=== PATIENT | female | born 1995 | race African-American/Black ===

== ENCOUNTER 2020-05-05 14:28 | Emergency (ER) | payer OTHER, SELFPAY ==
--- NOTE | ~2020-05-05 | CT_ITS ---
EXAMINATION: CT abdomen pelvis w con EXAM DATE: 05/05/2020 18:35 INDICATION: Lower abdominal pain . TECHNIQUE: Spiral CT of the abdomen and pelvis was performed following intravenous injection of 100 m L Omnipaque 350. Axial, coronal and sagittal images were reviewed. The dose-length product (DLP) fo r this examination was 403.85 mGy-cm. The exposure was tailored according to patient size (auto mA e xposure control), and iterative reconstruction (ASIR) was used as additional dose reduction technique . There is no prior study for comparison. FINDINGS: The liver, spleen, adrenal glands and pancreas are unremarkable. Gallbladder is unremarkab le. No biliary obstruction. Portal and splenic veins are patent. Kidneys enhance symmetrically. T here is no hydronephrosis. The uterus and ovaries are unremarkable, no adnexal mass. The bladder i s unremarkable. There is no retroperitoneal or pelvic lymphadenopathy. The appendix is normal. The stomach and small bowel are unremarkable. There is expected amount of c olonic stool. No free intraperitoneal gas. The heart is normal in size. There are no pericardial or pleural effusions. The lung bases are unremarkable. There are no osseous abnormalities identifie d. IMPRESSION: No acute intra-abdominal findings. Reviewed, dictated and finalized at location A.
[2020-05-05 14:32] VITALS: BP 110/77; PULSE 86; RESP 18; TEMP 37.1; O2SAT 100
--- NOTE | 2020-05-05 15:02 | ED.ABDPAIN ---
HPI - Abdominal Pain General Chief Complaint: Abdominal Pain Stated Complaint: Lap Time Seen by Provider: 05/05/20 14:32 Source: patient Mode of arrival: ambulatory Limitations: no limitations History of Present Illness HPI narrative: 24 years old -[place] female presents with recurrent lower abdominal cramps and heavy menstrual cycle for the last 4 years, got worse over the last 2 months. When the pain is so severe that she get nauseated and vomits. Patient denies any fever, chills, chest pain, back pain, never been before, denies any vaginal discharge. Patient reports that she is starting having her menstrual cycle yesterday associated with the above symptoms. Not getting better on ibuprofen 800 mg. Patient does not have an AGRICULTURE TEACHER. I suspect she Patient denies any history of abdominal surgery. Related Data Allergies Allergy/AdvReac Type Severity Reaction Status Date / Time No Known Allergies Allergy Verified 05/05/20 15:16 Review of Systems Review of Systems: Narrative: CONSTITUTIONAL: Denies fever, chills, or sweats. EYES: Denies visual changes, redness, or discharge. ENT: Denies rhinorrhea, congestion, sore throat, or otalgia. CARDIOVASCULAR: Denies chest pain, palpitations, or edema. RESPIRATORY: Denies cough or dyspnea. GASTROINTESTINAL: Denies abdominal pain, nausea, vomiting, or diarrhea. GENITOURINARY: Denies dysuria or hematuria. SKIN: Denies rash or itching. MUSCULOSKELETAL: Denies back pain, joint pain, or myalgia. NEUROLOGIC: Denies headache, numbness, or weakness. PSYCHIATRIC: Denies anxiety or depression. PMFSH Past Medical History Medical History (Updated 05/05/20 @ 19:14 by Freddie Mosqueda MD) Menorrhagia Traumatic subungual hemorrhage of digit of hand Social History Social History (Updated 05/05/20 @ 15:06 by Freddie Mosqueda MD) Social History: Patient is a smoker, drinks occasionally, and uses marijuana Second hand tobacco smoke exposure: No Exam Narrative: Exam Narrative: General appearance: Well-developed, well-nourished Skin: Normal color Head: Normocephalic, nontraumatic Eyes: Clear conjunctiva ENT: Oropharynx normal, ears normal, nose normal Neck: Supple, nontender Chest and respiratory: Airway patent, no respiratory distress, no accessory muscle use Heart: Regular rate/rhythm Abdomen: Soft, nontender, no organomegaly, quiet bowel sounds Vascular: Normal peripheral pulses, normal capillary refill. Musculoskeletal: Normal range of motion, nontender back Neurologic: Alert and oriented ?3, CATCHER HELPER is normal as tested, no gross motor deficit Course Course Emergency Course: Stable Vital Signs Vital signs: Vital Signs Temperature 37.1 C 05/05/20 14:32 Pulse Rate 86 05/05/20 14:32 Respiratory Rate 18 05/05/20 14:32 Blood Pressure 110/77 05/05/20 14:32 Pulse Oximetry 100 05/05/20 14:32 Temperature 37.1 C 05/05/20 14:32 Pulse Rate 72 05/05/20 16:51 Respiratory Rate 18 05/05/20 16:48 Blood Pressure 96/73 L 05/05/20 16:51 Pulse Oximetry 100 05/05/20 16:48 MDM - Abdominal Pain MDM Narrative Medical decision making narrative: Patient presents with lower abdominal pain associated with menstruation which started yesterday. Patient had similar symptoms for the last 4 years, does not have an AGRICULTURE TEACHER. Physical exam showed mild lower abdominal tenderness without guarding or rebound, Blood work-up includes CBC, CMP showed no significant abnormality. Urinalysis showed hematuria consistent with menstrual cycle, CAT scan of the abdomen and pelvis with IV contrast to rule out possibility of appendicitis, showed no significant abnormality. My diagnosis is dysmenorrhea, and
[2020-05-05 15:13] LABS: Basophils Absolute Auto 0.1 K/mm3 (0.0-0.1); Basophils Percent Auto 0.5 % (0.2-1.2); Eosinophils Absolute Auto 0.1 K/mm3 (0-0.3); Eosinophils Percent Auto 0.5 % (0-4.4); Hematocrit 41.2 % (37.0-47.0); Hemoglobin 12.9 g/dL (12.0-15.0); Immature Granulocyte Absolute 0.04 K/mm3 (0.00-0.031); Immature Granulocyte Percent A 0.4 % (0-0.5); Lymphocytes Absolute Auto 1.53 K/mm3 (0.9-3.2); Lymphocytes Percent Auto 14.2 % (18.3-44.2); Mean Corpuscular HGB Conc 31.3 g/dl (32-36); Mean Corpuscular Hemoglobin 22.4 pg (26-34); Mean Corpuscular Volume 71.4 fl (80-100); Mean Platelet Volume 10.5 fl (7.4-10.4); Monocytes Absolute Auto 0.6 K/mm3 (0.1-0.6); Neutrophils Absolute Auto 8.4 K/mm3 (1.3-6.7); Neutrophils Percent Auto 78.4 % (45.5-73.1); Platelet Count Result 205 k/mm3 (150-375); Red Blood Count 5.77 M/mm3 (4.2-5.4); Red Cell Distribution Width 15.4 % (11.5-14.5); White Blood Count 10.8 K/mm3 (4.5-10.0)
[2020-05-05 15:22] LABS: Alanine Aminotransferase 19 U/L (4-35); Albumin Level 4.4 g/dL (3.5-5.1); Alkaline Phosphatase 55 U/L (38-126); Anion Gap 8 mmol/L (8-16); Aspartate Amino Transferase 27 U/L (14-36); Bilirubin,Total 0.4 mg/dL (0.2-1.3); Blood Urea Nitrogen 9 mg/dL (7-17); Calcium 9.3 mg/dL (8.4-10.2); Carbon Dioxide 28 mmol/L (22-30); Chloride 104 mmol/L (98-107); Estimated CRCL calculation 93 ml/min; Estimated Glomerular Filt Rate > 60; Glucose 110 mg/dL (65-105); Lipase 58 U/L (23-300); Potassium 3.9 mmol/L (3.4-5.0); Sodium 140 mmol/L (137-145)
[2020-05-05] MEDS: KETOROLAC 30 MG/ML VIAL (*BKC) IV PUSH (15:30)
[2020-05-05] MEDS: SODIUM CHLORIDE 0.9% IV 1,000 ML 999 ML IV CONT (15:30)
[2020-05-05 15:52] LABS: Add Urine Microscopic? YES; Appearance Urine Cloudy (Clear); Bacteria Urine Trace /hpf; Bilirubin Urine Negative (Negative); Blood Urine 3+ (Negative); Color Urine Red (Yellow); Glucose Urine UA Negative (Negative); Ketones Urine Negative (Negative); Leukocyte Esterase Ur Trace LEU/UL (Negative); Mucus Urine Heavy /lpf; Nitrate Urine Negative (Negative); Protein Urine 2+ mg/dL (Negative); RBC Urine >75 /hpf (0-2); Specific Grav Ur 1.029 (1.001-1.035); WBC Urine 21-30 /hpf
[2020-05-05 16:48] VITALS: BP 107/66; PULSE 71; RESP 18; O2SAT 100
[2020-05-05 16:50] VITALS: BP 106/76; PULSE 76
[2020-05-05 16:51] VITALS: BP 96/73; PULSE 72
== END 2020-05-05 19:24 | disposition home or self-care (01) ==
PROVIDERS: Emergency Provider Emergency Medicine
DX: N92.1 Excessive and frequent menstruation with irregular cycle (principal); F17.210 Nicotine dependence, cigarettes, uncomplicated
CPT/HCPCS: 36415; 74177; 80053; 81001; 81025; 83690; 85025; 87086; 87088; 96361; 96374; 99284; J1885; J7030; Q9967

== ENCOUNTER 2021-05-16 18:04 | Emergency (ER) | payer SELFPAY ==
[2021-05-16 18:58] VITALS: BP 93/62; PULSE 72; RESP 14; TEMP 36.3; O2SAT 100
--- NOTE | 2021-05-16 19:35 | PC.NURSE ---
patient to ER with c/o jaw pain. swelling noted to right jaw/neck. pt also states pain on left side. patient states she believes she has some bad teeth.
--- NOTE | 2021-05-16 19:50 | ED.DENTAL ---
HPI - Dental/Oral General Chief complaint: Dental/Oral Stated complaint: Facial Pain Time Seen by Provider: 05/16/21 19:32 Source: patient and RN notes reviewed Mode of arrival: ambulatory Limitations: no limitations History of Present Illness HPI Narrative: This is 25 year old female who presents for evaluation of right lower dental pain. She reports having right lower tooth that has been bothering her for a while. Starting yesterday, she started having worsening right lower tooth pain that is constant. Pain is worse with eating and palpation. She denies fever, chills, nausea or vomiting. She has been taking naproxen, ibuprofen and Tylenol for her pain. Related Data Allergies Allergy/AdvReac Type Severity Reaction Status Date / Time No Known Allergies Allergy Verified 05/05/20 15:16 Review of Systems Review of Systems: All systems reviewed & are unremarkable except as noted in HPI and below PMFSH Past Medical History Medical History Menorrhagia Traumatic subungual hemorrhage of digit of hand Social History Social History (Updated 05/05/20 @ 15:06 by Freddie Mosqueda MD) Social History: Patient is a smoker, drinks occasionally, and uses marijuana Second hand tobacco smoke exposure: No Exam Const: General: no acute distress and alert Orientation/consciousness: patient oriented x3 HENMT: Head: normocephalic and atraumatic Mouth: Yes lip normal, Yes tongue normal and Yes moist mucous membranes Teeth and gingiva: fair dentition and other (right tooth #29 TTP, no gum swelling but there is tenderness) Eyes: EOM: EOMs intact bilaterally Neck: Neck: normal visual inspection Resp: Effort & Inspection: normal respiratory effort and no retractions Auscultation: clear to auscultation bilaterally Cardio: Rate: regular rate Rhythm: regular rhythm Heart sounds: no murmurs Course Reevaluation(s) Reevaluation #1: I discussed with patient discharge plan and treatment. She will follow up with dentist and take antibiotics. Date: 05/16/21 Time: 19:53 Vital Signs Vital signs: Vital Signs Temperature 97.4 F L 05/16/21 18:58 Pulse Rate 72 05/16/21 18:58 Respiratory Rate 14 05/16/21 18:58 Blood Pressure 93/62 L 05/16/21 18:58 Pulse Oximetry 100 11/01/21 18:58 Temperature 97.4 F L 05/16/21 18:58 Pulse Rate 72 05/16/21 18:58 Respiratory Rate 14 05/16/21 18:58 Blood Pressure 93/62 L 05/16/21 18:58 Pulse Oximetry 100 05/16/21 18:58 Discharge Plan Discharge Clinical Impression: Dental caries, Toothache Patient Disposition: Home, Self-Care Condition: Stable Instructions: Antibiotic Form, Toothache (ED) Additional Instructions: Please follow up with dentis for treatment of your tooth. TAke antibiotics as prescribed. Prescriptions: New amoxicillin-pot clavulanate [Augmentin] 875-125 mg tablet 1 tablet PO Q12H Qty: 20 RF: 0 tramadol 50 mg tablet 50 mg PO Q6H PRN (Reason: pain) Qty: 7 RF: 0 No Action tramadol 50 mg tablet 50 mg PO Q4H PRN (Reason: pain) Qty: 14 RF: 0 Follow-up/Referrals: Doug Hayward MD [Physician] - PHYSICIAN,RIDE ATTENDANT [Primary Care Provider] - Stand Alone Forms: Work/School Release IP
[2021-05-16] MEDS: AMOXICILLIN/CLAVULANATE K 875-125 MG TAB 1 TABLET PO (19:51)
== END 2021-05-16 20:13 | disposition home or self-care (01) ==
LOC: ANHED 19:55
PROVIDERS: Emergency Provider General Practice
DX: K02.9 Dental caries, unspecified (principal); F17.200 Nicotine dependence, unspecified, uncomplicated
CPT/HCPCS: 99283; A9270

== ENCOUNTER 2024-07-14 13:35 | Emergency (ER) | payer SELFPAY ==
--- NOTE | ~2024-07-14 | US_ITS ---
EXAMINATION: US pelvic complete w TV DATE: 07/14/2024 15:25 INDICATION: Right lower quadrant abdominal pain. TECHNIQUE: Multiple transabdominal and transvaginal sonographic images of the pelvis were obtained. COMPARISON: CT abdomen and pelvis 05/05/2020 FINDINGS: TRANSABDOMINAL ULTRASOUND: The uterus measures 7.7 x 4.1 x 5.3 cm. There is no free fluid in the pelvis. TRANSVAGINAL ULTRASOUND: The endometrial complex measures 2 mm in thickness. The right ovary measures 2.9 x 2.2 x 2.9 cm. The left ovary measures 3.4 x 3.1 x 2.6 cm. There is normal vascular flow in the ovaries. IMPRESSION: 1. Normal pelvis. Reviewed, dictated and finalized at location A. MAN IMPRESSION: 1. Normal pelvis.
[2024-07-14 14:23] VITALS: BP 108/76; PULSE 97; RESP 16; TEMP 36.4; O2SAT 100
--- NOTE | 2024-07-14 14:38 | ED.NAVMDI ---
HPI - Nausea/Vomiting/Diarrhea General Chief complaint: Nausea/Vomiting/Diarrhea <LYNN Warner Last Filed: 07/14/24 19:03> Stated complaint: vomited blood <LYNN Warner Last Filed: 07/14/24 19:03> Time Seen by Provider: 07/14/24 14:38 <LYNN Warner Last Filed: 07/14/24 19:03> Focused HPI: Patient is a 28-year-old female who presents the ED with report of abdominal pain and hematemesis. Patient reports she started her normal menstrual cycle last night. She states it is not uncommon for her to have nausea and vomiting related to the pain with her cycles. She has had several episodes of emesis today. States after she vomited up all her food, she began noticing blood in her emesis. Then had another episode of emesis which consisted of just blood, approx 2 teaspoons. She then prompted here. She does c/o pain in her right lower abdomen. Denies urinary complaints. Denies fevers. GENERAL: Well-appearing, well-nourished, and in no acute distress. HEAD: Normocephalic, atraumatic. CHEST: Clear to auscultation. ?No respiratory distress. HEART: Regular rate and rhythm.? ABD: Mild TTP in RLQ, no rebound NEURO: ?Alert and oriented x3. Patient screened in triage and initial orders placed.? ?Additional care and disposition to be based upon?diagnostic testing and treatment. <LYNN Warner Last Filed: 07/14/24 19:03> Source: patient <LYNN Warner Last Filed: 07/14/24 19:03> Mode of arrival: ambulatory <LYNN Warner Last Filed: 07/14/24 19:03> Limitations: no limitations <LYNN Warner Last Filed: 07/14/24 19:03> Related Data Allergies/Adverse reactions: Allergies Allergy/AdvReac Type Severity Reaction Status Date / Time No Known Allergies Allergy Verified 05/05/20 15:16 <Manasa Ortega PA-C - Last Filed: 07/14/24 19:03> Review of Systems Review of Systems: CONSTITUTIONAL: Denies fever GASTROINTESTINAL: Reports abdominal pain, nausea, vomiting GENITOURINARY: Denies dysuria <Lizzette Bruce PA-C - Last Filed: 07/14/24 18:03> All systems reviewed & are unremarkable except as noted in HPI and below <Lizzette Bruce PA-C - Last Filed: 07/14/24 18:03> PMFSH Past Medical History Medical History: Medical History Menorrhagia Traumatic subungual hemorrhage of digit of hand <Manasa Ortega PA-C - Last Filed: 07/14/24 19:03> Social History Social History: Social History (Updated 05/05/20 @ 15:06 by Freddie Mosqueda MD) Social History: Patient is a smoker, drinks occasionally, and uses marijuana Second hand tobacco smoke exposure: No <Manasa Ortega PA-C - Last Filed: 07/14/24 19:03> Exam Narrative: GENERAL: Well-appearing, well-nourished, and in no acute distress. HEAD: Normocephalic, atraumatic. EYES: EOMI. CHEST: Clear to auscultation. No respiratory distress. No wheezes rales or rhonchi HEART: Regular rate and rhythm. No murmur heard. Normal peripheral pulses. ABDOMEN: Soft, nontender, nondistended, normal active bowel sounds. EXTREMITIES: Normal range of motion. No edema. SKIN: Warm, dry, no rash. NEURO: No focal deficits. Alert and oriented x3. PSYCH: Normal mood and affect <LYNN Urias Last Filed: 07/14/24 18:03> Course Course Emergency Course: Patient updated on her workup. Resting comfortably after IV fluids, Protonix and Zofran <LYNN Urias Last Filed: 07/14/24 18:03> Vital Signs Vital signs: Vital Signs Temperature 97.6 F 07/14/24 14:23 Pulse Rate 97 07/14/24 14:23 Respiratory Rate 16 07/14/24 14:23 Blood Pressure 108/76 07/14/24 14:23 Pulse Oximetry 100 07/14/24 14:23 Oxygen Delivery Room Air 07/14/24 14:23 Temperature 97.9 F 07/14/24 18:09 Pulse Rate 101 H 07/14/24 18:09 Respiratory Rate 20 07/14/24 18:09 Blood Pressure 108/76 07/14/24 14:23 Pulse Oximetry 99 07/14/24 18:09 Oxygen Delivery Room Air 07/14/24 14:23 <Manasa Ortega PA-C - Last Filed: 07/14/24 19:03> Vital Signs Temperature 97.6 F 07/14/24 14:23 Pulse Rate 97 07/14/24 14:23 Respiratory Rate 16 07/14/24 14:23 Blood Pressure 108/76 07/14/24 14:23 Pulse Oximetry 100 07/14/24 14:23 Oxygen Delivery Room Air 07/14/24 14:23 Temperature 97.9 F 07/14/24 18:09 Pulse Rate 101 H 07/14/24 18:09 Respiratory Rate 20 07/14/24 18:09 Blood Pressure 108/76 07/14/24 14:23 Pulse Oximetry 99 07/14/24 18:09 Oxygen Delivery Room Air 07/14/24 14:23 <Lizzette Bruce PA-C - Last Filed: 07/14/24 18:03> MDM - Nausea/Vomiting/Diarrhea MDM Narrative Medical decision making narrative: Patient presents the emergency department for abdominal discomfort, nausea and vomiting. Reports this is a frequent occurrence for her with her menstrual cycles. She is afebrile and nontoxic appearing. Her vitals are stable. CBC with leukocytosis to 15, likely due to recent vomiting. Her hemoglobin is normal. She had reported seeing a small amount of blood in her vomit. She has had no further episodes of vomiting in the ER. Urine with 6-10 white blood cells, patient has no urinary symptoms. This will be sent for culture. Pelvic ultrasound is normal. Patient updated on her workup. Resting comfortably after IV fluids, Protonix and Zofran. Agrees with plan of care. She was given warnings to return to the ER <Lizzette Bruce PA-C - Last Filed: 07/14/24 18:03> Differential Diagnosis Differential diagnosis: Likely food poisoning, gastroenteritis, dehydration and other (Grecia-Anderson tear, gastritis, esophagitis, menorrhagia, UTI) <Lizzette Bruce PA-C - Last Filed: 07/14/24 18:03> Lab Data Attestation: I reviewed the patient's lab results. <Lizzette Bruce PA-C - Last Filed: 07/14/24 18:03> Result diagrams: 07/14/24 16:35 07/14/24 16:35 <Manasa Ortega PA-C - Last Filed: 07/14/24 19:03> Labs: Lab Results 07/14/24 Range/Units 16:35 WBC 15.0 H (4.5-10.0) K/mm3 RBC 5.62 H (4.2-5.4) M/mm3 Hgb 12.6 (12.0-15.0) g/dL Hct 39.6 (37.0-47.0) % MCV 70.5 L (80-100) fl MCH 22.4 L (26-34) pg MCHC 31.8 L (32-36) g/dl RDW 15.9 H (11.5-14.5) % Plt Count 229 (150-375) k/mm3 MPV 10.5 H (7.4-10.4) fl Immature Gran % (Auto) 0.5 (0-0.5) % Neut % (Auto) 64.0 (45.5-73.1) % Lymph % (Auto) 22.7 (18.3-44.2) % Hall % (Auto) 10.6 H (2.6-8.5) % Eos % (Auto) 1.3 (0-4.4) % Baso % (Auto) 0.9 (0.2-1.2) % Lymph # (Auto) 3.40 H (0.9-3.2) K/mm3 Hall # (Auto) 1.6 H (0.1-0.6) K/mm3 Eos # (Auto) 0.2 (0-0.3) K/mm3 Baso # (Auto) 0.1 (0.0-0.1) K/mm3 Abs Immat Gran (auto) 0.07 H (0.00-0.031) K/mm3 Absolute Neuts (auto) 9.6 H (1.3-6.7) K/mm3 Absolute Nucleated RBC 0.000 (0.0-0.012) K/mm3 Nucleated RBC % 0.0 (0.0-0.2) % Platelet Estimate Adequate (Adequate) Hypochromasia 1+ Anisocytosis 2+ Microcytosis 1+ (NORMAL) Schistocytes None seen PT 13.8 (11.1-14.7) Seconds INR 1.0 APTT 34.5 (22.3-36.8) Seconds Sodium 138 (137-145) mmol/L Potassium 3.4 (3.4-5.0) mmol/L Chloride 106 (98-107) mmol/L Carbon Dioxide 29 (22-30) mmol/L Anion Gap 3 L (4-12) mmol/L BUN 9 (7-17) mg/dL Creatinine 0.90 (0.7-1.0) mg/dL Estim Creat Clear Calc 81 ml/min Estimated GFR > 60 (59 - ) Glucose 93 (65-110) mg/dL Calcium 9.1 (8.4-10.2) mg/dL Total Bilirubin 0.4 (0.2-1.3) mg/dL AST 26 (14-36) U/L ALT 19 (6-35) U/L Alkaline Phosphatase 56 (38-126) U/L Total Protein 8.0 (6.3-8.2) g/dL Albumin 4.2 (3.5-5.1) g/dL Lipase 74 (23-300) U/L Urine Color Garfield H (Yellow) Urine Appearance Cloudy H (Clear) Urine pH 7.5 (5.0-9.0) Ur Specific Elizabeth 1.027 (1.001-1.035) Urine Protein 1+ H (Negative) mg/dL Urine Glucose (UA) Negative (Negative) mg/dL Urine Ketones Trace H (Negative) mg/dL Ur Blood (Man) 3+ H (Negative) Urine Nitrate Negative (Negative) Urine Bilirubin Negative (Negative) Urine Urobilinogen 1.0 (<2.0) mg/dL Add Ur Microanalysis Reviewed Leukocyte Esterase Rfl 1+ H (Negative) ULISSES/UL Urine RBC >100 H (0-2) /hpf Urine WBC 6-10 H (0-3) /hpf Ur Squamous Epith Cells Occasional (Few) /hpf Urine Bacteria None seen /hpf Urine Casts 0-2 Urine Mucus Present /lpf <Manasa Ortega PA-C - Last Filed: 07/14/24 19:03> Lab Results 07/14/24 Range/Units 16:35 WBC 15.0 H (4.5-10.0) K/mm3 RBC 5.62 H (4.2-5.4) M/mm3 Hgb 12.6 (12.0-15.0) g/dL Hct 39.6 (37.0-47.0) % MCV 70.5 L (80-100) fl MCH 22.4 L (26-34) pg MCHC 31.8 L (32-36) g/dl RDW 15.9 H (11.5-14.5) % Plt Count 229 (150-375) k/mm3 MPV 10.5 H (7.4-10.4) fl Immature Gran % (Auto) 0.5 (0-0.5) % Neut % (Auto) 64.0 (45.5-73.1) % Lymph % (Auto) 22.7 (18.3-44.2) % Hall % (Auto) 10.6 H (2.6-8.5) % Eos % (Auto) 1.3 (0-4.4) % Baso % (Auto) 0.9 (0.2-1.2) % Lymph # (Auto) 3.40 H (0.9-3.2) K/mm3 Hall # (Auto) 1.6 H (0.1-0.6) K/mm3 Eos # (Auto) 0.2 (0-0.3) K/mm3 Baso # (Auto) 0.1 (0.0-0.1) K/mm3 Abs Immat Gran (auto) 0.07 H (0.00-0.031) K/mm3 Absolute Neuts (auto) 9.6 H (1.3-6.7) K/mm3 Absolute Nucleated RBC 0.000 (0.0-0.012) K/mm3 Nucleated RBC % 0.0 (0.0-0.2) % Platelet Estimate Adequate (Adequate) Hypochromasia 1+ Anisocytosis 2+ Microcytosis 1+ (NORMAL) Schistocytes None seen PT 13.8 (11.1-14.7) Seconds INR 1.0 APTT 34.5 (22.3-36.8) Seconds Sodium 138 (137-145) mmol/L Potassium 3.4 (3.4-5.0) mmol/L Chloride 106 (98-107) mmol/L Carbon Dioxide 29 (22-30) mmol/L Anion Gap 3 L (4-12) mmol/L BUN 9 (7-17) mg/dL Creatinine 0.90 (0.7-1.0) mg/dL Estim Creat Clear Calc 81 ml/min Estimated GFR > 60 (59 - ) Glucose 93 (65-110) mg/dL Calcium 9.1 (8.4-10.2) mg/dL Total Bilirubin 0.4 (0.2-1.3) mg/dL AST 26 (14-36) U/L ALT 19 (6-35) U/L Alkaline Phosphatase 56 (38-126) U/L Total Protein 8.0 (6.3-8.2) g/dL Albumin 4.2 (3.5-5.1) g/dL Lipase 74 (23-300) U/L Urine Color Garfield H (Yellow) Urine Appearance Cloudy H (Clear) Urine pH 7.5 (5.0-9.0) Ur Specific Elizabeth 1.027 (1.001-1.035) Urine Protein 1+ H (Negative) mg/dL Urine Glucose (UA) Negative (Negative) mg/dL Urine Ketones Trace H (Negative) mg/dL Ur Blood (Man) 3+ H (Negative) Urine Nitrate Negative (Negative) Urine Bilirubin Negative (Negative) Urine Urobilinogen 1.0 (<2.0) mg/dL Add Ur Microanalysis Reviewed Leukocyte Esterase Rfl 1+ H (Negative) ULISSES/UL Urine RBC >100 H (0-2) /hpf Urine WBC 6-10 H (0-3) /hpf Ur Squamous Epith Cells Occasional (Few) /hpf Urine Bacteria None seen /hpf Urine Casts 0-2 Urine Mucus Present /lpf <Lizzette Bruce PA-C - Last Filed: 07/14/24 18:03> Imaging Data Radiologist's impression: ITS Impressions Pelvic/Transvag US 07/14/24 15:27 IMPRESSION: 1. Normal pelvis. <Lizzette Bruce PA-C - Last Filed: 07/14/24 18:03> Critical Care Time Critical Care Time Critical Care Time: No <LYNN Urias Last Filed: 07/14/24 18:03> Discharge Plan Discharge Clinical Impression: Nausea and vomiting Qualifiers: Vomiting type: hematemesis Qualified Code(s): K92.0 - Hematemesis <LYNN Warner Last Filed: 07/14/24 19:03> Patient Disposition: Home, Self-Care <LYNN Warner Last Filed: 07/14/24 19:03> Condition: Improved <LYNN Warner Last Filed: 07/14/24 19:03> Instructions: Acute Nausea and Vomiting (ED), Grecia-Anderson Syndrome (ED) <LYNN Warner Last Filed: 07/14/24 19:03> Additional Instructions: Return to the ER if you experience fever, abdominal pain with nausea and vomiting, you are unable to keep down liquids or solids, worsening bleeding, or any other symptoms that are concerning to you Small, frequent meals. Pope diet. Remain well hydrated. Take Pantoprazole daily. Take Ondansetron as needed for nausea. Avoid spicy foods. Avoid acidic foods. Avoid eating just before bedtime. Avoid anti-inflammatories (aleve, ibuprofen, naproxen, etc) Follow up with primary care doctor <LYNN Warner Last Filed: 07/14/24 19:03> Patient Language: Lao <LYNN Warner Last Filed: 07/14/24 19:03> Prescriptions: New pantoprazole 40 mg tablet,delayed release (DR/EC) 40 mg PO HS 28 Days Qty: 28 0RF ondansetron 4 mg tablet,disintegrating 4 mg PO Q6H PRN (Reason: nausea and vomiting) Qty: 14 0RF No Action tramadol 50 mg tablet 50 mg PO Q4H PRN (Reason: pain) Qty: 14 0RF amoxicillin-pot clavulanate [Augmentin] 875-125 mg tablet 1 tablet PO Q12H Qty: 20 0RF tramadol 50 mg tablet 50 mg PO Q6H PRN (Reason: pain) Qty: 7 0RF <Manasa Ortega PA-C - Last Filed: 07/14/24 19:03> Follow-up/Referrals: PHYSICIAN,TEACHER LIP READING [Primary Care Provider] - Travis Lee MD [Physician] - <Manasa Ortega PA-C - Last Filed: 07/14/24 19:03>
[2024-07-14] MEDS: PANTOPRAZOLE 40 MG TABLET PO (16:31)
[2024-07-14] MEDS: ONDANSETRON HCL ODT 4 MG TABLET PO (16:32)
[2024-07-14] MEDS: HYDROcodone/acetaminophen (*CRX) 5-325 MG TABLET 1 TAB PO (16:32)
[2024-07-14 16:47] LABS: Basophils Absolute Auto 0.1 K/mm3 (0.0-0.1); Basophils Percent Auto 0.9 % (0.2-1.2); Eosinophils Absolute Auto 0.2 K/mm3 (0-0.3); Eosinophils Percent Auto 1.3 % (0-4.4); Hematocrit 39.6 % (37.0-47.0); Hemoglobin 12.6 g/dL (12.0-15.0); Immature Granulocyte Absolute 0.07 K/mm3 (0.00-0.031); Immature Granulocyte Percent A 0.5 % (0-0.5); Lymphocytes Percent Auto 22.7 % (18.3-44.2); Mean Corpuscular HGB Conc 31.8 g/dl (32-36); Mean Corpuscular Hemoglobin 22.4 pg (26-34); Mean Corpuscular Volume 70.5 fl (80-100); Mean Platelet Volume 10.5 fl (7.4-10.4); Monocytes Absolute Auto 1.6 K/mm3 (0.1-0.6); Monocytes Percent Auto 10.6 % (2.6-8.5); Neutrophils Absolute Auto 9.6 K/mm3 (1.3-6.7); Platelet Count Result 229 k/mm3 (150-375); Red Blood Count 5.62 M/mm3 (4.2-5.4); Red Cell Distribution Width 15.9 % (11.5-14.5)
[2024-07-14] MEDS: SODIUM CHLORIDE 0.9% IV 1,000 ML 999 ML IV CONT (16:53)
[2024-07-14 16:59] LABS: Prothrombin Time 13.8 Seconds (11.1-14.7)
[2024-07-14 17:00] LABS: Partial Thromboplastin Time 34.5 Seconds (22.3-36.8)
[2024-07-14 17:05] LABS: Alanine Aminotransferase 19 U/L (6-35); Albumin Level 4.2 g/dL (3.5-5.1); Alkaline Phosphatase 56 U/L (38-126); Anion Gap 3 mmol/L (4-12); Aspartate Amino Transferase 26 U/L (14-36); Bilirubin,Total 0.4 mg/dL (0.2-1.3); Blood Urea Nitrogen 9 mg/dL (7-17); Calcium 9.1 mg/dL (8.4-10.2); Carbon Dioxide 29 mmol/L (22-30); Chloride 106 mmol/L (98-107); Estimated CRCL calculation 81 ml/min; Estimated Glomerular Filt Rate > 60; Glucose 93 mg/dL (65-110); Lipase 74 U/L (23-300); Potassium 3.4 mmol/L (3.4-5.0); Sodium 138 mmol/L (137-145)
[2024-07-14 17:08] LABS: Bacteria Urine None Seen /hpf; Mucus Urine Present /lpf; Need Manual Microscopic Reviewed; Non Pathogenic Casts 0-2; RBC Urine >100 /hpf (0-2); Squamous Epithelial Cell Urine Occasional /hpf (Few)
[2024-07-14 17:09] LABS: Add Urine Microscopic? YES; Appearance Urine Cloudy (Clear); Bilirubin Urine Negative (Negative); Blood Urine 3+ (Negative); Color Urine Orange (Yellow); Glucose Urine UA Negative (Negative); Ketones Urine Trace mg/dL (Negative); Leukocyte Esterase Ur 1+ LEU/UL (Negative); Nitrate Urine Negative (Negative); Protein Urine 1+ mg/dL (Negative); Specific Grav Ur 1.027 (1.001-1.035); pH Urine 7.5 (5.0-9.0)
[2024-07-14 17:32] LABS: Hypochromasia 1+; Microcytosis 1+ (NORMAL); Platelet Estimate Adequate (Adequate); Schistocytes None Seen
[2024-07-14 17:33] LABS: Anisocytosis 2+
[2024-07-14 18:09] VITALS: PULSE 101; RESP 20; TEMP 36.6; O2SAT 99
== END 2024-07-14 18:10 | disposition home or self-care (01) ==
PROVIDERS: Physician Assistant; Emergency Provider Physician Assistant
DX: K92.0 Hematemesis (principal); F17.200 Nicotine dependence, unspecified, uncomplicated
CPT/HCPCS: 36415; 76830; 76856; 80053; 81001; 83690; 85025; 85610; 85730; 87086; 96360; 99284; A9270; J7030